=== PATIENT | female | born 1990 | race Caucasian/White ===

== ENCOUNTER 2018-01-02 11:25 | Emergency (ER) | payer OTHER ==
[~2018-01-02] VITALS: Ht 172.7 cm; Wt 63.6 kg
[2018-01-02 14:50] VITALS: BP 128/75
[2018-01-02] MEDS ORDERED: TRAMADOL HYDROC50 MG PO (14:51)
[2018-01-02] MEDS ORDERED: FLEXERIL PO (14:51)
== END 2018-01-02 15:15 | disposition home or self-care (01) | DRG 125 ==
LOC: ED 11:25
DX: S00.12XA Contusion of left eyelid and periocular area, initial encounter (principal); M54.2 Cervicalgia; V49.40XA Driver injured in collision with unspecified motor vehicles in traffic accident, initial encounter